=== PATIENT | female | born 1935 | race Caucasian/White ===

== ENCOUNTER 2019-09-13 05:11 | Emergency (ER) | payer OTHER ==
[~2019-09-13] VITALS: Ht 152.4 cm; Wt 81.7 kg
[~2019-09-13 05:11] MED LIST: ALBU90OI; AMLO5 PO; ASPI81CH PO; AZIT250; BENAML10/5 PO; CIPR500 PO; Colace250 MG PO; DIGO.125; DILT240; DOCU100; FURO20; HYDACE5; IRON GLUCONATE; KCL 10 MEQ; LANS30EC; LISI5; LORA.5; METO100ER PO; METO25ER; METO50; METR500 PO; Norco 7.5-3251 EACH PO; OMEP20ER PO; ONDA4ODT; SIMV20; WARF2; WARF3; [UNRECOGNIZED DRUG - OTHER]
[2019-09-13 05:37] LABS: BASOPHILS ABSOLUTE AUTO 0.04 K/mm3 (0.00-0.23); BASOPHILS PERCENT AUTO 0 % (0-2); EOSINOPHILS ABSOLUTE AUTO 0.19 K/mm3 (0.00-0.68); EOSINOPHILS PERCENT AUTO 1 % (0-6); Hematocrit 41.9 % (33.0-51.0); Hemoglobin 13.8 g/dL (11.5-16.0); IMMATURE GRAN ABSOLUTE AUTO 0.05 K/mm3 (0.00-0.10); IMMATURE GRAN PERCENT AUTO 0 % (0-1); LYMPHOCYTES ABSOLUTE AUTO 2.32 K/mm3 (0.84-5.20); LYMPHOCYTES PERCENT AUTO 17 % (21-46); MONOCYTES ABSOLUTE AUTO 1.09 K/mm3 (0.16-1.47); MONOCYTES PERCENT AUTO 8 % (4-13); Mean Corpuscular HGB 31.6 pg (26.0-34.0); Mean Corpuscular HGB Conc 32.9 g/dL (31.5-36.5); Mean Corpuscular Volume 96 fL (80-100); Mean Platelet Volume 10.6 fL (9.1-12.4); NEUTROPHILS ABSOLUTE AUTO 9.79 K/mm3 (1.96-9.15); NEUTROPHILS PERCENT AUTO 73 % (41-73); Platelet Count 247 K/mm3 (150-400); RDW Coefficient Variation 12.5 % (11.7-14.2); RDW Standard Deviation 44.6 fL (35.1-46.3); Red Blood Cell Count 4.37 M/mm3 (3.80-5.20); White Blood Cell Count 13.48 K/mm3 (4.00-11.30)
[2019-09-13 05:56] LABS: Alanine Aminotransfer (ALT/SGP 13 U/L (12-78); Albumin, Blood 3.2 g/dL (3.4-5.0); Albumin/Globulin Ratio 0.9 (0.8-1.8); Alk Phos 73 U/L (50-136); Anion Gap 8 mmol/L (6-16); Aspartate Aminotrans (AST/SGOT 7 U/L (12-37); Bilirubin, Total 0.8 mg/dL (0.1-1.0); Blood Urea Nitrogen 12 mg/dL (8-24); Bun/Creatinine Ratio 13.4 (12.0-20.0); CO2, Blood 22 mmol/L (21-32); Chloride, Blood 110 mmol/L (98-108); Globulin, Blood 3.7 g/dL (2.2-4.0); Glomerular Filtration Rate >60 (60-); Glucose, Blood 114 mg/dL (70-99); Sodium, Blood 140 mmol/L (136-145); Total Protein, Blood 6.9 g/dL (6.4-8.2); Troponin I <0.015 ng/mL (0.000-0.040)
[2019-09-13] MEDS ORDERED: CEFD300 PO (06:19)
== END 2019-09-13 06:48 | disposition home or self-care (01) ==
LOC: ER 05:11
PROVIDERS: Emergency Medicine
DX: J18.9 Pneumonia, unspecified organism (principal); I10 Essential (primary) hypertension; K21.9 Gastro-esophageal reflux disease without esophagitis; Z88.2 Allergy status to sulfonamides; Z88.1 Allergy status to other antibiotic agents; Z79.899 Other long term (current) drug therapy; F17.200 Nicotine dependence, unspecified, uncomplicated
CPT/HCPCS: 36415; 71046; 80053; 84484; 85025; 93005; 93010; 99285-25

== ENCOUNTER 2019-09-15 14:42 | Inpatient (IN) | payer OTHER ==
[~2019-09-15] VITALS: Ht 162.6 cm; Wt 85.6 kg
[~2019-09-15 14:42] MED LIST changes: +CEFD300 PO
[2019-09-15 15:38] LABS: BASOPHILS ABSOLUTE AUTO 0.05 K/mm3 (0.00-0.23); BASOPHILS PERCENT AUTO 0 % (0-2); EOSINOPHILS ABSOLUTE AUTO 0.22 K/mm3 (0.00-0.68); EOSINOPHILS PERCENT AUTO 2 % (0-6); Hematocrit 42.2 % (33.0-51.0); Hemoglobin 14.1 g/dL (11.5-16.0); IMMATURE GRAN ABSOLUTE AUTO 0.07 K/mm3 (0.00-0.10); IMMATURE GRAN PERCENT AUTO 1 % (0-1); LYMPHOCYTES ABSOLUTE AUTO 2.25 K/mm3 (0.84-5.20); LYMPHOCYTES PERCENT AUTO 15 % (21-46); MONOCYTES ABSOLUTE AUTO 1.08 K/mm3 (0.16-1.47); MONOCYTES PERCENT AUTO 7 % (4-13); Mean Corpuscular HGB 31.9 pg (26.0-34.0); Mean Corpuscular HGB Conc 33.4 g/dL (31.5-36.5); Mean Corpuscular Volume 96 fL (80-100); Mean Platelet Volume 10.6 fL (9.1-12.4); NEUTROPHILS PERCENT AUTO 75 % (41-73); Platelet Count 321 K/mm3 (150-400); RDW Coefficient Variation 12.3 % (11.7-14.2); RDW Standard Deviation 43.2 fL (35.1-46.3); Red Blood Cell Count 4.42 M/mm3 (3.80-5.20); White Blood Cell Count 14.57 K/mm3 (4.00-11.30)
[2019-09-15 16:03] LABS: Albumin/Globulin Ratio 0.7 (0.8-1.8); Bilirubin, Total 0.4 mg/dL (0.1-1.0); Bun/Creatinine Ratio 11.5 (12.0-20.0); Creatinine, Blood 1.04 mg/dL (0.40-1.00); Globulin, Blood 4.4 g/dL (2.2-4.0); Potassium, Blood 4.1 mmol/L (3.5-5.5); Total Protein, Blood 7.4 g/dL (6.4-8.2)
--- NOTE | 2019-09-15 19:23 | NUR ---
pt arrived to the medical floor from the er a/ox3, via stretcher, accompanied by family, the pt was oriented to the room layout and call system, report given to [facility] nurse Mabel keating
[2019-09-15 21:01] LABS: Influenza A Negative (NEGATIVE); Influenza B Negative (NEGATIVE)
[2019-09-16 05:14] LABS: Hematocrit 36.5 % (33.0-51.0); Mean Corpuscular HGB Conc 32.9 g/dL (31.5-36.5); Mean Corpuscular Volume 97 fL (80-100); Mean Platelet Volume 10.7 fL (9.1-12.4); Platelet Count 259 K/mm3 (150-400); RDW Coefficient Variation 12.4 % (11.7-14.2); RDW Standard Deviation 44.5 fL (35.1-46.3); Red Blood Cell Count 3.75 M/mm3 (3.80-5.20)
--- NOTE | 2019-09-16 05:22 | NUR ---
SHIFT SUMMARY: VSS. AFEB. SKIN WARM AND DRY. A/OX3. SOMEWHAT LIME. FAMILY AT BEDSIDE ALL NIGHT. NAUSEA AND VOMITIN AFTER SNACK JUST BEFORE BEDTIME, ZOFRAN ADMINISTERED WITH RELIEF. NO FURTHER REPORTS OF N/V. CONT WITH OCCASIONAL HARSH SOUNDING, PRODUCTIVE COUGH. SPUTUM CLEAR WITH RED STREAKS. PT C/O R SIDE/LOWER RIB PAIN. TYLENOL ADMINISTERED WITH GOOD EFFECT. DYSPNEA AND TACHYPNEA HAS IMPROVED THROUGH THE NIGHT. PT CURRENTLY BREATHING AT 16 BREATHS/MIN. DENIES FEELING DISTRESSED. CONT WITH EXERTIONAL DYSPNEA. 02 SATS HAVE REMAINED 97-98% ON RA. LSCTA, BASES DIM. BED LOW, CALL BUTTON IN REACH. WILL CONT TO MONITOR.
--- NOTE | 2019-09-16 05:28 | NUR ---
CALL TO HOSPITALIST AT 2150 PER PT REQUEST FOR SLEEP AID. RECEIVED ORDER FOR MELATONIN.
[2019-09-16 06:42] LABS: Adenovirus Not Detected (NOT DETECT); Bordetella pertussis Not Detected (NOT DETECT); Chlamydophila pneumoniae Not Detected (NOT DETECT); Coronavirus 229E Not Detected (NOT DETECT); Coronavirus HKU1 Not Detected (NOT DETECT); Coronavirus NL63 Not Detected (NOT DETECT); Coronavirus OC43 Not Detected (NOT DETECT); Human Metapneumovirus Not Detected (NOT DETECT); Human Rhinovirus/Enterovirus Not Detected (NOT DETECT); Influenza A Not Detected (NOT DETECT); Influenza A/2009-H1 Not Detected (NOT DETECT); Influenza A/H1 Not Detected (NOT DETECT); Influenza A/H3 Not Detected (NOT DETECT); Influenza B Not Detected (NOT DETECT); Mycoplasma pneumoniae Not Detected (NOT DETECT); Parainfluenza Virus 1 Not Detected (NOT DETECT); Parainfluenza Virus 2 Not Detected (NOT DETECT); Parainfluenza Virus 3 Not Detected (NOT DETECT); Parainfluenza Virus 4 Not Detected (NOT DETECT); Respiratory Syncytial Virus Not Detected (NOT DETECT)
--- NOTE | 2019-09-16 16:54 | NUR ---
PT IS A/OX3, PLEASANT AND COOPERATIVE, PT IS UP WITH ASSIST, PT WAS MEDICATED FOR LUNA X1 TODAY, PT REPORTS FEELING THAT SHE IS BREATHING A LITTLE EASIER, HOWEVER SHE IS STILL SOB WITH MINIMAL ACTIVITY AND EVEN WHEN SPEAKING, PTS O2 SATS HAVE REMAINED IN THE MID 90'S AND THE PT STATED THAT SHE DID NOT FEEL THAT SHE NEEDED O2, PTS FAMILY HAS BEEN AT THE BEDSIDE T/O THE DAY, CALL LIGHT IN REACH, WILL CONTINUE TO MONITOR AND ASSESS FOR CHANGES
--- NOTE | 2019-09-17 03:36 | NUR ---
MEDIA CONSULTANT REPORTS PATIENT RESPIRATIONS UP TO 30 WHEN UP TO BATHROOM AND THEN TOOK VITALS. RESPIRATIONS BACK TO 20 AT REST. CALL LIGHT IN REACH.
--- NOTE | 2019-09-17 03:47 | NUR ---
SHIFT SUMMARY PATIENT HAD NO ACUTE CHANGES OBSERVED. AXOX 3 AND FAMILY MEMBER PRESENT IN ROOM T/O SHIFT. PIV REMAINS INTACT. VSS/AFEBRILE. REPORTED LUNA X ONE AND TYLENOL GIVEN PER EMAR. IV ABXS INFUSED. DENIES SOB AND N/V. ONE ASSIST TO BSC. COOPERATIVE WITH CARE. CALL LIGHT IN REACH. BED IN LOWEST POSITION. WILL CONTINUE TO MONITOR UNTIL DAY SHIFT NURSE ASSUMES CARE.
[2019-09-17 08:12] LABS: Anion Gap 8 mmol/L (6-16); Blood Urea Nitrogen 7 mg/dL (8-24); Bun/Creatinine Ratio 8.1 (12.0-20.0); CO2, Blood 20 mmol/L (21-32); Calcium, Blood 8.7 mg/dL (8.5-10.1); Chloride, Blood 113 mmol/L (98-108); Creatinine, Blood 0.86 mg/dL (0.40-1.00); Glomerular Filtration Rate >60 (60-); Glucose, Blood 108 mg/dL (70-99); Potassium, Blood 3.9 mmol/L (3.5-5.5); Sodium, Blood 141 mmol/L (136-145)
--- NOTE | 2019-09-17 15:27 | NUR ---
SHIFT SUMMARY PT IS A/O X 4 WITH C/O HEADACHE X 1 AND TYLENOL WAS EFFECTIVE. PT HAS NO S/S OF RESPIRATORY DISTRESS AND WAS ABLE TO WORK WITH PT TODAY. SHE CONTINUES TX WITH RT. DAUGHTERS HAVE BEEN AT BEDSIDE THROUGHOUT THE DAY. THE PT REPORTED TO THE DOCTOR THIS MORNING THAT SHE HAS HAD LOOSE STOOLS SINCE YESTERDAY. A STOOL SAMPLE WAS COLLECTED AND WAS NEGATIVE FOR C-DIFF PER LAB RESULTS AND THE PT AND CHARGE NURSE WERE NOTIFIED. PT REMAINS A X 1 ASSIST TO THE BSC FOR TOILETING. SHE IS UP TO HER CHAIR NOW. PT IS ABLE TO MAKE HER NEEDS KNOWN. CALL LIGHT IN REACH.
--- NOTE | 2019-09-17 19:50 | NUR ---
RT IN FOR BREATHING TX. PATIENT REPORTED SOB. WAS ON ROOM AIR AND DAY RN PLACED HER ON 2L O2 NC. NEW ORDERS FOR IV ABXS. IV VANCO INFUSING.
--- NOTE | 2019-09-18 04:07 | NUR ---
SHIFT SUMMARY PATIENT REPORTED SOB WITH EXERTION AT SHIFT CHANGE. PUT ON 2L O2 NC BY DAY RN AND RT IN FOR BREATHING TX. NAUSEOUS X ONE AND RESOLVED WITH IV ZOFRAN. PIV REMAINS INTACT. NEW ORDERS FOR IV VANCO AND IV LEVOFLAXIN 750 MG INFUSED PER EMAR. MELATONIN 5 MG GIVEN FOR INSOMNIA. VSS/AFEBRILE. DENIES PAIN. DAUGHTER PRESENT T/O SHIFT. PATIENT SLEPT ON/OFF T/O SHIFT. CALL LIGHT IN REACH. BED IN LOWEST POSITION. WILL CONTINUE TO MONITOR UNTIL DAY SHIFT NURSE ASSUMES CARE.
[2019-09-18 07:48] LABS: BASOPHILS ABSOLUTE AUTO 0.05 K/mm3 (0.00-0.23); BASOPHILS PERCENT AUTO 1 % (0-2); EOSINOPHILS ABSOLUTE AUTO 0.14 K/mm3 (0.00-0.68); EOSINOPHILS PERCENT AUTO 1 % (0-6); Hematocrit 36.2 % (33.0-51.0); Hemoglobin 12.1 g/dL (11.5-16.0); IMMATURE GRAN ABSOLUTE AUTO 0.06 K/mm3 (0.00-0.10); IMMATURE GRAN PERCENT AUTO 1 % (0-1); LYMPHOCYTES ABSOLUTE AUTO 1.72 K/mm3 (0.84-5.20); LYMPHOCYTES PERCENT AUTO 17 % (21-46); MONOCYTES ABSOLUTE AUTO 0.79 K/mm3 (0.16-1.47); MONOCYTES PERCENT AUTO 8 % (4-13); Mean Corpuscular HGB 31.7 pg (26.0-34.0); Mean Corpuscular HGB Conc 33.4 g/dL (31.5-36.5); Mean Corpuscular Volume 95 fL (80-100); NEUTROPHILS ABSOLUTE AUTO 7.11 K/mm3 (1.96-9.15); NEUTROPHILS PERCENT AUTO 72 % (41-73); Platelet Count 294 K/mm3 (150-400); RDW Coefficient Variation 12.3 % (11.7-14.2); RDW Standard Deviation 42.9 fL (35.1-46.3); Red Blood Cell Count 3.82 M/mm3 (3.80-5.20); White Blood Cell Count 9.87 K/mm3 (4.00-11.30)
[2019-09-18 08:09] LABS: Albumin, Blood 2.6 g/dL (3.4-5.0); Anion Gap 9 mmol/L (6-16); Blood Urea Nitrogen 5 mg/dL (8-24); Bun/Creatinine Ratio 6.8 (12.0-20.0); CO2, Blood 21 mmol/L (21-32); Calcium, Blood 8.9 mg/dL (8.5-10.1); Chloride, Blood 107 mmol/L (98-108); Creatinine, Blood 0.74 mg/dL (0.40-1.00); Glomerular Filtration Rate >60 (60-); Glucose, Blood 115 mg/dL (70-99); Phosphorus, Blood 2.8 mg/dL (2.5-4.9); Potassium, Blood 3.9 mmol/L (3.5-5.5); Sodium, Blood 137 mmol/L (136-145)
--- NOTE | 2019-09-18 10:00 | NUR ---
Upon family's request, I visit patient with the purpose of informing patient about the recent demise of her sister who moments before my visit. I inform patient of her sister's , inquire about patient's medical issues and provide grief support. I listen empathically, normalize patient's experience and provide prayer. Patient responds well and voices appreciation for the tenderness of care and for the prayer. I will continue to remain available to patient and family.
--- NOTE | 2019-09-18 18:39 | NUR ---
No acute issues noted. No current complaints of pain or discomfort noted. No nausea or vomitting noted this shift. Patient has slept off and on most of the day after no getting much sleep last night. No current complaints of shortness of breath, patient is on room air at this time. Will continue to monitor for changes.
--- NOTE | 2019-09-19 00:59 | NUR ---
PATIENT RESTING ON ROOM AIR. REPORTED LUNA X ONE AND TYLENOL GIVEN. DAUGHTER PRESENT. DENIES SOB AND ANXIETY. CALL LIGHT IN REACH.
--- NOTE | 2019-09-19 03:52 | NUR ---
SHIFT SUMMARY PATIENT HAD NO ACUTE CHANGES OBSERVED THIS SHIFT. AXOX 3 AND ONE ASSIST TO BSC. REPORTED LUNA X ONE AND TYLENOL GIVEN PER EMAR. DENIES N/V AND SOB. ON ROOM AIR. DAUGHTER PRESENT IN ROOM T/O SHIFT. PATIENT ABLE TO SLEEP. PATIENT REPORTED BREATHING IMPROVED SINCE LAST NOC SHIFT AND HAD NO N/V EVENTS. COOPERATIVE WITH CARE. CALL LIGHT IN REACH. BED IN LOWEST POSITION. WILL CONTINUE TO MONITOR UNTIL DAY SHIFT NURSE ASSUMES CARE.
[2019-09-19 05:36] LABS: BASOPHILS ABSOLUTE AUTO 0.07 K/mm3 (0.00-0.23); BASOPHILS PERCENT AUTO 1 % (0-2); EOSINOPHILS ABSOLUTE AUTO 0.26 K/mm3 (0.00-0.68); EOSINOPHILS PERCENT AUTO 3 % (0-6); Hematocrit 42.4 % (33.0-51.0); Hemoglobin 13.8 g/dL (11.5-16.0); IMMATURE GRAN ABSOLUTE AUTO 0.06 K/mm3 (0.00-0.10); IMMATURE GRAN PERCENT AUTO 1 % (0-1); LYMPHOCYTES ABSOLUTE AUTO 3.02 K/mm3 (0.84-5.20); LYMPHOCYTES PERCENT AUTO 33 % (21-46); MONOCYTES ABSOLUTE AUTO 0.77 K/mm3 (0.16-1.47); MONOCYTES PERCENT AUTO 9 % (4-13); Mean Corpuscular HGB 31.8 pg (26.0-34.0); Mean Corpuscular HGB Conc 32.5 g/dL (31.5-36.5); Mean Platelet Volume 10.5 fL (9.1-12.4); NEUTROPHILS ABSOLUTE AUTO 4.89 K/mm3 (1.96-9.15); NEUTROPHILS PERCENT AUTO 54 % (41-73); Platelet Count 331 K/mm3 (150-400); RDW Coefficient Variation 12.3 % (11.7-14.2); RDW Standard Deviation 44.6 fL (35.1-46.3); Red Blood Cell Count 4.34 M/mm3 (3.80-5.20); White Blood Cell Count 9.07 K/mm3 (4.00-11.30)
[2019-09-19 05:43] LABS: Mean Corpuscular Volume 98 fL (80-100)
[2019-09-19 06:08] LABS: Albumin, Blood 2.8 g/dL (3.4-5.0); Anion Gap 8 mmol/L (6-16); Blood Urea Nitrogen 6 mg/dL (8-24); Bun/Creatinine Ratio 6.9 (12.0-20.0); CO2, Blood 24 mmol/L (21-32); Calcium, Blood 9.4 mg/dL (8.5-10.1); Chloride, Blood 106 mmol/L (98-108); Creatinine, Blood 0.87 mg/dL (0.40-1.00); Glomerular Filtration Rate >60 (60-); Glucose, Blood 99 mg/dL (70-99); Phosphorus, Blood 3.6 mg/dL (2.5-4.9); Potassium, Blood 3.9 mmol/L (3.5-5.5); Sodium, Blood 138 mmol/L (136-145)
--- NOTE | 2019-09-19 15:21 | NUR ---
Spiritual care visit conducted. Patient is sitting up in bed and alert. Patient son, Orlin, is present in the room. Patient tells me about her how she is feeling much better from yesterday when I saw her last. Patient boasts of a close to 12 hour sleep last night. Patient tells me how she is processing the grief of her sister's . Patient tells me stories of how they grew up and the poverty they had to push through. She told about what her sister was like and the relationship they had. I listen to patient and provide grief support and prayer. Patient responds well and shows signs of being comforted. I will continue to remain available to patient and family.
--- NOTE | 2019-09-19 18:49 | NUR ---
SHIFT SUMMARY- PT IS A/O, PLESANT AND COOPERATIVE. SHE IS EATING AND DRINKING WELL. REVIECING IV ANTIBIOTICS. FAMILY AT BEDSIDE. PT WORKED WITH PHYSICAL THERAPY THIS AFTERNOON AND AMBULATED IN THE LEPE. PT STATES THAT SHE FEELS MUCH BETTER THAN SHE PREVIOUSLY DID BUT IS STILL FEELING WEAKNESS
--- NOTE | 2019-09-20 07:19 | NUR ---
09/20/19 0635 AWAKED FOR AM MED. COUGHING AND DAUGHTER STATES SHE HAS BEEN DOING "A LOT OF COUGHING" RECENTLY. WILL INFORM DAY SHIFT RN FOR COUGH PILLS. LOW GRADE TEMP NOTED BUT PT HAD DOOR CLOSED AND HEATER WAS ON HIGH. LILLIE STAYED ALL NIGHT WITH PT.
--- NOTE | 2019-09-20 18:22 | NUR ---
SHIFT SUMMARY PT HAS HAD A POOR APPETITE TODAY AND NOT EATING MORE THAN A FEW BITES OF APPLE OR CRACKERS. DAUGHTERS AT BEDSIDE MOST OF THE DAY. THEY REPORT PT IS MUCH WORSE TODAY THAN YESTERDAY. HAD A SMALL EMESIS THIS MORNING AND JUST A SMALL AMOUNT OF BILE THIS AFTERNOON. PHENERGAN GIVEN WITH PT BECOMING DROWSY. RESP SOUNDS MORE MOIST AND RAPID THIS AFTERNOON. LASIX GIVEN. DENIES FEELING RESP DISTRESS. 1 PERSON UP TO BEDSIDE COMMODE. WALKED WITH P.T. THIS AFTERNOON.
--- NOTE | 2019-09-21 01:17 | NUR ---
BEGINNING SHIFT SUMMARY ASSUMED CARE PF PT AT 1900. PT IS ALERT AND ORIENTED X4. FAMILY PRESENT. PT VITALS SHOWED A VEIW SCORE OF 4 AT 1930. PT MEDICATED FOR FEVER AND NIGHTLY BP MEDICATIONS ADMINISTERED, MANUAL PULSE TAKEN. UPON REASSESSMENT ONE HOUR LATER, TEMP REDUCED FROM 100.9 TO 99.3, BP DECREASED AND PULSE DECREASED. RESPIRATIONS ARE STILL ELEVATED, RT CONSULTED AND BREATHING TREATMENT ADMINISTERED, PT STILL ON 2L O2 FOR COMFORT, WILL TITRATE BACK TO RA. HEART SOUNDS IRREGULAR, HX: UNTREATED AFIB. INSPIRATORY AND EXPIRATORY WHEEZES HEARD ON AUSCALTATION, CRACKLES AFTER BREATHING TREATMENT, PT STATES SHE FEELS BETTER AFTER TREATMENT. CALL LIGHT IN REACH, BED IN LOWEST POSTION, WILL CONTINUE TO MONITOR.
--- NOTE | 2019-09-21 05:00 | NUR ---
END SHIFT SUMMARY PT SPIKED ANOTHER TEMP DURING THE NIGHT, THE PT C/O CHILLS. MEDICATED PER EMAR. UPON REASSESSMENT, PT TEMP DECREASED FROM 101.1 TO 99.4. PT FEELS HOT NOW, BLANKETS ARE OFF, ROOM DOOR IS OPEN. PT IS NOW ON RA, SATURATION ABOVE 90 PT DENIES SOB AT THIS TIME. FAMILY IN ROOM, CALL LIGHT IN REACH, BED IN LOWEST POSTION, WILL CONTINUE TO MONITOR UNTIL DAYSHIFT NURSE ARRIVES.
[2019-09-21 05:50] LABS: BASOPHILS ABSOLUTE AUTO 0.04 K/mm3 (0.00-0.23); BASOPHILS PERCENT AUTO 1 % (0-2); EOSINOPHILS ABSOLUTE AUTO 0.01 K/mm3 (0.00-0.68); EOSINOPHILS PERCENT AUTO 0 % (0-6); Hematocrit 38.5 % (33.0-51.0); Hemoglobin 12.9 g/dL (11.5-16.0); IMMATURE GRAN ABSOLUTE AUTO 0.05 K/mm3 (0.00-0.10); IMMATURE GRAN PERCENT AUTO 1 % (0-1); LYMPHOCYTES ABSOLUTE AUTO 0.67 K/mm3 (0.84-5.20); LYMPHOCYTES PERCENT AUTO 11 % (21-46); MONOCYTES ABSOLUTE AUTO 0.58 K/mm3 (0.16-1.47); MONOCYTES PERCENT AUTO 10 % (4-13); Mean Corpuscular HGB 31.7 pg (26.0-34.0); Mean Corpuscular HGB Conc 33.5 g/dL (31.5-36.5); Mean Platelet Volume 10.1 fL (9.1-12.4); NEUTROPHILS ABSOLUTE AUTO 4.77 K/mm3 (1.96-9.15); NEUTROPHILS PERCENT AUTO 78 % (41-73); Platelet Count 281 K/mm3 (150-400); RDW Coefficient Variation 12.2 % (11.7-14.2); Red Blood Cell Count 4.07 M/mm3 (3.80-5.20); White Blood Cell Count 6.12 K/mm3 (4.00-11.30)
[2019-09-21 05:52] LABS: Mean Corpuscular Volume 95 fL (80-100)
[2019-09-21 06:23] LABS: Anion Gap 9 mmol/L (6-16); Blood Urea Nitrogen 9 mg/dL (8-24); Bun/Creatinine Ratio 11.3 (12.0-20.0); CO2, Blood 24 mmol/L (21-32); Calcium, Blood 8.5 mg/dL (8.5-10.1); Chloride, Blood 98 mmol/L (98-108); Glomerular Filtration Rate >60 (60-); Glucose, Blood 108 mg/dL (70-99); Potassium, Blood 3.3 mmol/L (3.5-5.5); Sodium, Blood 131 mmol/L (136-145); Troponin I <0.015 ng/mL (0.000-0.040)
--- NOTE | 2019-09-21 08:50 | NUR ---
CURRENTLY HAVING ECHOCARDIOGRAM. POTASSIUM LEVEL THIS MORNING 3.3 EXTRA 40MEQ GIVEN OF POTASSIUM.
--- NOTE | 2019-09-21 15:14 | NUR ---
echocardiogram completed
--- NOTE | 2019-09-21 15:55 | NUR ---
Spiritual care visit conducted. Patient is lying in bed and trying to remain still for fear of vomiting. Patient's daughter, Aleksey, is bed side. Aleksey tells me about her concerns for her mom as she is losing strength and weight and continues to struggle with nuasea. Aleksey shares about the strong luz maria and family support systems that are in place but she admits to worrying as the symptoms drag on. I listen empathically, normalize Aleksey' experience, reinforce helpful attitudes and practices and provide anxiety containment and prayer. Patient and Aleksey respond well and show signs of an elevated mood. I will continue to remain available to patient and family.
--- NOTE | 2019-09-21 19:01 | NUR ---
SHIFT SUMMARY TEMP DOWN TO 99.3 THIS EVENING. SHE REPORTS SHE IS FEELING SLIGHTLY BETTER. STILL VERY WEAK. UP TO CHAIR FOR DINNER. PATIENT AGREEABLE TO SHOWER IN THE MORNING BUT REFUSING TODAY. NO COMPLAINTS OF PAIN AND NO FURTHER COMPLAINTS OF NAUSEA AFTER EARLY AFTERNOON. FAMILY AT BEDSIDE. ECHO COMPLETE TODAY.
--- NOTE | 2019-09-21 23:31 | NUR ---
BEGINNING SHIFT SUMMARY ASSUMED CARE OF PT AT 1900. PT IS ALERT AND ORIENTED, DENIES N/T AT THIS TIME, FAMILY STATED THAT HER L LEG WENT NUMB THIS MORNING. HEART SOUNDS REGULAR, CRACKLES T/O LUNG FEILDS, RT CONSULTED WITH CARE. PT IS 1P ASSIST TO BATHROOM WITH WALKER. FAMILY IS IN ROOM WITH PT. CALL LIGHT IN REACH, BED IN LOWEST POSTION, WILL CONTINUE TO MONITOR.
--- NOTE | 2019-09-22 04:47 | NUR ---
END SHIFT SUMMARY NO ACUTE CHANGES DURING THE NIGHT. THE PATIENT WAS AFEBRILE, AND STATED THAT SHE WAS FEELING BETTER. PT HAS OCCASIONAL COUGH. PT IS SITTING IN HER RECLINER NOW BECAUSE SHE COULDNT GO BACK TO SLEEP. FAMILY PRESENT IN ROOM, CALL LIGHT IN REACH, BED IN LOWEST POSTION, WILL CONTINUE TO MONITOR UNTIL DAYSHIFT NURSE ARRIVES.
[2019-09-22 05:21] LABS: BASOPHILS ABSOLUTE AUTO 0.03 K/mm3 (0.00-0.23); BASOPHILS PERCENT AUTO 1 % (0-2); EOSINOPHILS PERCENT AUTO 0 % (0-6); Hematocrit 41.1 % (33.0-51.0); Hemoglobin 13.7 g/dL (11.5-16.0); IMMATURE GRAN ABSOLUTE AUTO 0.05 K/mm3 (0.00-0.10); IMMATURE GRAN PERCENT AUTO 1 % (0-1); LYMPHOCYTES ABSOLUTE AUTO 1.41 K/mm3 (0.84-5.20); LYMPHOCYTES PERCENT AUTO 23 % (21-46); MONOCYTES ABSOLUTE AUTO 0.66 K/mm3 (0.16-1.47); MONOCYTES PERCENT AUTO 11 % (4-13); Mean Corpuscular HGB 31.1 pg (26.0-34.0); Mean Corpuscular HGB Conc 33.3 g/dL (31.5-36.5); Mean Corpuscular Volume 93 fL (80-100); Mean Platelet Volume 10.2 fL (9.1-12.4); NEUTROPHILS ABSOLUTE AUTO 4.03 K/mm3 (1.96-9.15); NEUTROPHILS PERCENT AUTO 65 % (41-73); Platelet Count 274 K/mm3 (150-400); RDW Coefficient Variation 12.3 % (11.7-14.2); RDW Standard Deviation 42.6 fL (35.1-46.3); White Blood Cell Count 6.18 K/mm3 (4.00-11.30)
[2019-09-22 05:51] LABS: Bun/Creatinine Ratio 12.4 (12.0-20.0); Calcium, Blood 8.8 mg/dL (8.5-10.1); Creatinine, Blood 0.97 mg/dL (0.40-1.00); Potassium, Blood 3.5 mmol/L (3.5-5.5)
--- NOTE | 2019-09-22 18:25 | NUR ---
PT ALERT AND ORIENTED THROUGHOUT THIS SHIFT. PT [employer]. PT WORKED WITH PT THIS AM THEN NAPPED MUCH OF THE AFTERNOON. PT UP TO CHAIR FOR DINNER. PT HAS HAD MULTIPLE VISITORS IN THE ROOM THROUGHOUT THIS SHIFT. PT CURRENLY UP IN CHAIR VISITING WITH VISITORS, NO ADDITIONAL NEEDS AT THIS TIME.
--- NOTE | 2019-09-23 04:20 | NUR ---
09/23/19 0420 PT SLEPT ON AND OFF. DAUGHTER STAYED WITH HER AND HELPS TAKE HER TO THE BATHROOM. HAD SEVERAL VOIDINGS AND STOOL LAST NIGHT. VITALS STABLE AND HAS BEEN AFEBRILE THIS SHIFT. PT HAD DIFFICULTY SWALLOWING THE ANTIBIOTIC LAST EVENING. WILL INFORM DAY SHIFT RN TO ASK MD FOR ANTIBIOTIC IN SUSPENSION FORM. PT REMAINS WEAK.
[2019-09-23] MEDS ORDERED: FURO20 PO (11:42)
[2019-09-23] MEDS ORDERED: Vsl#3 Capsule1 EACH PO (11:45)
[2019-09-23] MEDS ORDERED: XARELTO15 MG PO (11:45)
[2019-09-23] MEDS ORDERED: POTA10T PO (11:46)
--- NOTE | 2019-09-23 15:16 | NUR ---
PT DISCHARGED TO HOME. PT TRANSPORTED HOME WITH DAUGHTER. PT BELONGINGS WITH PT UPON DISCHARGE. IV REMOVED ON 09/22, NO IV REPLACED. PT TRANSPORTED TO VEHICLE BY JAMES DUONG CNA. DISCHARGE INSTRUCTIONS REVIEWED WITH DAUGHTER, PER PT'S REQUEST.
== END 2019-09-23 12:44 | disposition home or self-care (01) | DRG 871 ==
LOC: ER 14:42 → MEDS 17:58 → ENPENDDIS 09-23 10:00 → MEDS 09-23 12:44
PROVIDERS: Internal Medicine; Nurse Practitioner Acute Care; Physician Assistant; ADMIT Internal Medicine
DX: A41.9 Sepsis, unspecified organism (principal); I50.43 Acute on chronic combined systolic (congestive) and diastolic (congestive) heart failure; J18.9 Pneumonia, unspecified organism; E87.1 Hypo-osmolality and hyponatremia; I11.0 Hypertensive heart disease with heart failure; I48.91 Unspecified atrial fibrillation; R65.20 Severe sepsis without septic shock; K21.9 Gastro-esophageal reflux disease without esophagitis; Z66 Do not resuscitate; M54.9 Dorsalgia, unspecified; Z87.891 Personal history of nicotine dependence; Z88.2 Allergy status to sulfonamides; Z88.8 Allergy status to other drugs, medicaments and biological substances; Z91.81 History of falling
CPT/HCPCS: 0099U; 36415; 71045; 71046; 71260; 80048; 80053; 80069; 83605; 83880; 84145; 84484; 85025; 85027; 87040; 87070; 87205; 87493; 87804; 93306; 94640; 94760; 94761; 97110; 97116; 97162; 97165; 97530; 97535; 99285-25; A9270; C9113; J0456; J0696; J1650; J1940; J1956; J2405; J2550; J3370; J7030; J7050; Q9967

== ENCOUNTER 2021-01-28 10:20 | Day surgery (SDC) | payer OTHER ==
[~2021-01-28] VITALS: Ht 152.4 cm; Wt 80.6 kg
[~2021-01-28 10:20] MED LIST changes: +FURO20 PO; +POTA10T PO; +Vsl#3 Capsule1 EACH PO; +XARELTO15 MG PO; +XARELTO20 MG PO
--- NOTE | 2021-01-28 10:56 | NUR ---
PT TO DAYSURGERY VIA WC. Patient confirms NPO status and agrees with scheduled surgery. History, Chart, Medications and Allergies reviewed before start of procedure. Lungs clear T/O to Auscultation. Patient reports completing Chlorhexadine shower X2 prior to admission to hospital.
--- NOTE | 2021-01-28 19:39 | NUR ---
SHIFT SUMMARY PT HAS STRUGGLED W/ N/V SINCE ARRIVAL TO UNIT. SPINAL WORE OFF AROUND 1800 & PAIN INCREASED. UNABLE TO DO PO MEDS DUE TO DRY HEAVES. MINIMAL RESULTS FROM DILAUDID. REPORTS OXYCODONE CAUSES SEVERE N/V SO TRAMADOL ORDERED INSTEAD. UNABLE TO GIVE DUE TO N/V.
--- NOTE | 2021-01-29 02:44 | NUR ---
SHIFT SUMMARY: POD 1 RIGHT TKA PATIENT IS ALERT AND ORIENTED X4 WHILE AWAKE. THOUGH PATIENT HAS BEEN ASLEEP MAJORITY OF THE SHIFT BUT IS EASILY AWAKENED. VS ARE WNL AND IS ON RA. PAIN IS MANAGED WITH DILAUDID WITH PHENERGAN. PATIENT ALSO HAS TRAMADOL PRN FOR PAIN WELL. PATIENT HAS 1 AQUACEL IS C/D/I. SHE DENIES ANY NUMBNESS OR TINGLING IN EXTREMITIES. SHE IS ABLE TO WIGGLE FINGERS AND TOES. PATIENT WAS ABLE TO AMBULATE TO BATHROOM WITH FWW AND GAIT BELT A SBA. CALLS APPROPRIATELY. CALL LIGHT WITHIN REACH. PATIENT IS VOIDING AND TOLERATING PO INTAKE. THE PLAN IS TO WORK WITH PT/OT LATER TODAY.
[2021-01-29 04:29] LABS: BASOPHILS ABSOLUTE AUTO 0.01 K/mm3 (0.00-0.23); BASOPHILS PERCENT AUTO 0 % (0-2); EOSINOPHILS PERCENT AUTO 0 % (0-6); Hematocrit 32.1 % (33.0-51.0); Hemoglobin 10.9 g/dL (11.5-16.0); IMMATURE GRAN ABSOLUTE AUTO 0.04 K/mm3 (0.00-0.10); IMMATURE GRAN PERCENT AUTO 0 % (0-1); LYMPHOCYTES ABSOLUTE AUTO 0.98 K/mm3 (0.84-5.20); LYMPHOCYTES PERCENT AUTO 9 % (21-46); MONOCYTES ABSOLUTE AUTO 0.33 K/mm3 (0.16-1.47); MONOCYTES PERCENT AUTO 3 % (4-13); Mean Corpuscular HGB 32.8 pg (26.0-34.0); Mean Corpuscular Volume 97 fL (80-100); Mean Platelet Volume 10.5 fL (9.1-12.4); NEUTROPHILS ABSOLUTE AUTO 9.57 K/mm3 (1.96-9.15); NEUTROPHILS PERCENT AUTO 88 % (41-73); Platelet Count 200 K/mm3 (150-400); RDW Coefficient Variation 12.1 % (11.7-14.2); RDW Standard Deviation 42.6 fL (35.1-46.3); Red Blood Cell Count 3.32 M/mm3 (3.80-5.20); White Blood Cell Count 10.93 K/mm3 (4.00-11.30)
[2021-01-29 04:57] LABS: Calcium, Blood 7.3 mg/dL (8.5-10.1); Creatinine, Blood 1.15 mg/dL (0.40-1.00)
[2021-01-29 04:58] LABS: Magnesium, Blood 0.9 mg/dL (1.6-2.4)
--- NOTE | 2021-01-29 05:30 | NUR ---
SPOKE WITH DR. WANG ABOUT CRTICIAL LAB VALUE OF 0.[address] WANG STATED TO WAIT FOR DR. SANDERS TO ROUND ON PATIENT LATER THIS MORNING. TEXTED DR. SANDERS AND AWAITING CALL BACK.
--- NOTE | 2021-01-29 07:50 | NUR ---
HOSPITALIST CONSULT ORDER RECIEVED RE: MG. CALLED DR PATEL & DISCUSSED SITUATION. AWAITING HIM TO COME TO ROOM. @ THIS TIME, PT DENIES CP, PALPTATIONS, LIGHTHEADEDNESS. NO TREMORS NOTED. HRR.
--- NOTE | 2021-01-29 19:57 | NUR ---
SHIFT SUMMARY PT RECIEVED IV & PO MEDS FOR LOW MG LEVEL; RECHECK WNL. N/V HAS RESOLVED. EATING, DRINKING, VOIDING, & HAVING LOOSE BM's. AMBULATING HAS IMPROVED THIS AFTERNOON, BUT STILL FEARFUL TO GO FARTHER THAN BATHROOM & BACK. PAIN WELL CONTROLLED W/ TYLENOL & TORADOL.
--- NOTE | 2021-01-30 04:38 | NUR ---
SHIFT SUMMARY: PT A&O X4. VS WNL THROUGHOUT SHIFT. PT POD#2 FOR A RT TKA. DRESSING C/D/I WITH POLAR PACK IN PLACE. PT C/O DISCOMFORT IN BEGINNING OF SHIFT. MEDICATED WITH ULTRAM PER EMAR AND TOLERATED WELL. PT ALSO MEDICATED WITH SCHEDULED TORADOL AND TYLENOL. PT DENIES PAIN THIS SHIFT. CURRENTLY RESTING ON LEFT SIDE WHICH SHE REPORTS TO BE MOST COMFORTABLE D/T RIGHT HIP PAIN. PT AMBULATED TO BATHROOM WITH 1 MINIMAL ASSIST. TOLERATED ACTIVITY WELL. GRANDDAUGHTER AT BEDSIDE.
[2021-01-30] MEDS ORDERED: PROM25 PO (11:49)
[2021-01-30] MEDS ORDERED: MAGNESIUM OXID500 MG PO (11:49)
[2021-01-30] MEDS ORDERED: ACET500 PO (11:49)
[2021-01-30] MEDS ORDERED: TRAM50 PO (11:50)
--- NOTE | 2021-01-30 12:45 | NUR ---
DISCHARGE CLEARED THERAPY & IS MUCH STRONGER. EATING, DRINKING, VOIDING, & HAVING BM'S. MG WNL. OK FOR DC W/ HOSPITALIST & DR SANDERS. SCRIPTS, ELISEO, & POLAR PACK SENT. ESCORTED OUT VIA W/C.
== END 2021-01-30 12:48 | disposition home or self-care (01) ==
LOC: SURS 10:20 → ORSCMMR 10:20 → SURS 13:57 → ORD 14:00 → ORSCMMR 14:00 → SURS 01-30 12:48
PROVIDERS: Orthopaedic Surgery
PROC: 8E0Y0CZ Robotic Assisted Procedure of Lower Extremity, Open Approach (ICD-10-PCS; principal; 2021-01-28 14:00)
PROC: 0SRC0JA Replacement of Right Knee Joint with Synthetic Substitute, Uncemented, Open Approach (ICD-10-PCS; principal; 2021-01-28 14:00)
DX: M17.11 Unilateral primary osteoarthritis, right knee (principal); I48.0 Paroxysmal atrial fibrillation; E78.5 Hyperlipidemia, unspecified; K21.9 Gastro-esophageal reflux disease without esophagitis; I11.0 Hypertensive heart disease with heart failure; I50.32 Chronic diastolic (congestive) heart failure; Z87.891 Personal history of nicotine dependence; Z79.01 Long term (current) use of anticoagulants; Z79.899 Other long term (current) drug therapy
CPT/HCPCS: 27447; S2900; 36415; 73560-RT; 80048; 82330; 83735; 85025; 97110; 97116; 97162; A9270; C1776; J0171; J0610; J0690; J0735; J1100; J1170; J1885; J2250; J2370; J2405; J2550; J2704; J2765; J2795; J3010; J3475; J7120

== ENCOUNTER 2021-02-01 10:22 | Emergency (ER) | payer OTHER ==
[~2021-02-01] VITALS: Ht 152.4 cm; Wt 83.9 kg
[~2021-02-01 10:22] MED LIST changes: +ACET500 PO; +MAGNESIUM OXID500 MG PO; +PROM25 PO; +TRAM50 PO
[2021-02-01 10:51] LABS: BASOPHILS ABSOLUTE AUTO 0.04 K/mm3 (0.00-0.23); BASOPHILS PERCENT AUTO 0 % (0-2); EOSINOPHILS ABSOLUTE AUTO 0.15 K/mm3 (0.00-0.68); EOSINOPHILS PERCENT AUTO 1 % (0-6); Hematocrit 29.9 % (33.0-51.0); Hemoglobin 9.9 g/dL (11.5-16.0); IMMATURE GRAN ABSOLUTE AUTO 0.07 K/mm3 (0.00-0.10); IMMATURE GRAN PERCENT AUTO 1 % (0-1); LYMPHOCYTES ABSOLUTE AUTO 2.75 K/mm3 (0.84-5.20); LYMPHOCYTES PERCENT AUTO 20 % (21-46); MONOCYTES ABSOLUTE AUTO 0.68 K/mm3 (0.16-1.47); MONOCYTES PERCENT AUTO 5 % (4-13); Mean Corpuscular HGB 32.8 pg (26.0-34.0); Mean Corpuscular HGB Conc 33.1 g/dL (31.5-36.5); Mean Corpuscular Volume 99 fL (80-100); Mean Platelet Volume 10.9 fL (9.1-12.4); NEUTROPHILS PERCENT AUTO 73 % (41-73); Platelet Count 242 K/mm3 (150-400); RDW Coefficient Variation 12.6 % (11.7-14.2); RDW Standard Deviation 45.4 fL (35.1-46.3); Red Blood Cell Count 3.02 M/mm3 (3.80-5.20); White Blood Cell Count 13.59 K/mm3 (4.00-11.30)
[2021-02-01 11:04] LABS: Alanine Aminotransfer (ALT/SGP 9 U/L (12-78); Albumin, Blood 2.4 g/dL (3.4-5.0); Albumin/Globulin Ratio 0.7 (0.8-1.8); Alk Phos 60 U/L (50-136); Anion Gap 13 mmol/L (6-16); Aspartate Aminotrans (AST/SGOT 13 U/L (12-37); Bilirubin, Total 0.9 mg/dL (0.1-1.0); Blood Urea Nitrogen 16 mg/dL (8-24); Bun/Creatinine Ratio 17.8 (12.0-20.0); CO2, Blood 18 mmol/L (21-32); Calcium, Blood 7.9 mg/dL (8.5-10.1); Chloride, Blood 103 mmol/L (98-108); Globulin, Blood 3.3 g/dL (2.2-4.0); Glomerular Filtration Rate >60 (60-); Glucose, Blood 127 mg/dL (70-99); Potassium, Blood 3.4 mmol/L (3.5-5.5); Sodium, Blood 134 mmol/L (136-145); Total Protein, Blood 5.7 g/dL (6.4-8.2); Troponin I <0.015 ng/mL (0.000-0.040)
[2021-02-01] MEDS ORDERED: PROM12.5S PR (12:58)
[2021-02-02] MEDS ORDERED: ONDA4ODT MM (20:47)
[2021-02-02] MEDS ORDERED: Percocet 5-3251 EACH PO (20:47)
[2021-02-02] MEDS ORDERED: LIDO700A20 TOP (20:47)
== END 2021-02-01 14:11 | disposition home or self-care (01) ==
LOC: ER 10:22
PROVIDERS: Emergency Medicine
DX: M54.31 Sciatica, right side (principal); I10 Essential (primary) hypertension; K21.9 Gastro-esophageal reflux disease without esophagitis; Z88.2 Allergy status to sulfonamides; Z88.1 Allergy status to other antibiotic agents; Z79.899 Other long term (current) drug therapy; Z87.891 Personal history of nicotine dependence
CPT/HCPCS: 36415; 74018; 80053; 84484; 85025; 93005; 93010; 96374; 96375; 96376; 99284-25; J1170; J2405; J3010; J7030

== ENCOUNTER 2021-02-02 18:30 | Emergency (ER) | payer OTHER ==
[~2021-02-02] VITALS: Ht 152.4 cm; Wt 81.7 kg
[~2021-02-02 18:30] MED LIST changes: +PROM12.5S PR
[2021-02-02] MEDS ORDERED: ONDA4ODT MM (20:47)
[2021-02-02] MEDS ORDERED: Percocet 5-3251 EACH PO (20:47)
[2021-02-02] MEDS ORDERED: LIDO700A20 TOP (20:47)
== END 2021-02-02 21:41 | disposition home or self-care (01) ==
LOC: ER 18:30
DX: M54.31 Sciatica, right side (principal)
CPT/HCPCS: 73502; 96374; 96376; 99283-25; A9270; J3010

== ENCOUNTER 2021-02-19 07:55 | Emergency (ER) | payer OTHER ==
[~2021-02-19] VITALS: Ht 165.1 cm; Wt 99.8 kg
[~2021-02-19 07:55] MED LIST changes: +LIDO700A20 TOP; +ONDA4ODT MM; +Percocet 5-3251 EACH PO
[2021-02-19] MEDS ORDERED: OXYCODONE-ACET1 EAC3 PO (08:06)
[2021-02-19 10:45] LABS: BASOPHILS ABSOLUTE AUTO 0.06 K/mm3 (0.00-0.23); BASOPHILS PERCENT AUTO 1 % (0-2); EOSINOPHILS ABSOLUTE AUTO 0.12 K/mm3 (0.00-0.68); EOSINOPHILS PERCENT AUTO 2 % (0-6); Hematocrit 31.9 % (33.0-51.0); Hemoglobin 10.5 g/dL (11.5-16.0); IMMATURE GRAN ABSOLUTE AUTO 0.03 K/mm3 (0.00-0.10); IMMATURE GRAN PERCENT AUTO 0 % (0-1); LYMPHOCYTES ABSOLUTE AUTO 1.76 K/mm3 (0.84-5.20); LYMPHOCYTES PERCENT AUTO 22 % (21-46); MONOCYTES ABSOLUTE AUTO 0.68 K/mm3 (0.16-1.47); MONOCYTES PERCENT AUTO 9 % (4-13); Mean Corpuscular HGB 33.2 pg (26.0-34.0); Mean Corpuscular HGB Conc 32.9 g/dL (31.5-36.5); Mean Corpuscular Volume 101 fL (80-100); Mean Platelet Volume 10.3 fL (9.1-12.4); NEUTROPHILS PERCENT AUTO 67 % (41-73); Platelet Count 337 K/mm3 (150-400); RDW Coefficient Variation 14.2 % (11.7-14.2); RDW Standard Deviation 51.8 fL (35.1-46.3); Red Blood Cell Count 3.16 M/mm3 (3.80-5.20); White Blood Cell Count 7.95 K/mm3 (4.00-11.30)
[2021-02-19 11:11] LABS: Bun/Creatinine Ratio 16.3 (12.0-20.0); Calcium, Blood 8.5 mg/dL (8.5-10.1); Creatinine, Blood 1.23 mg/dL (0.40-1.00); Potassium, Blood 4.2 mmol/L (3.5-5.5)
[2021-02-19] MEDS ORDERED: METAXALONE PO (11:40)
== END 2021-02-19 12:50 | disposition home or self-care (01) ==
LOC: ER 07:55
PROVIDERS: Physician Assistant
DX: M25.551 Pain in right hip (principal); I10 Essential (primary) hypertension; K21.9 Gastro-esophageal reflux disease without esophagitis; I48.91 Unspecified atrial fibrillation; Z88.2 Allergy status to sulfonamides; Z88.1 Allergy status to other antibiotic agents; Z79.899 Other long term (current) drug therapy; Z87.891 Personal history of nicotine dependence; Z79.01 Long term (current) use of anticoagulants
CPT/HCPCS: 73700; 80048; 85025; 93971; 96374; 96375; 99284-25; J2405; J3010; J7030

== ENCOUNTER 2024-01-04 13:19 | Emergency (ER) | payer OTHER ==
[~2024-01-04] VITALS: Ht 154.9 cm; Wt 59.0 kg
[2024-01-04 19:18] VITALS: BP 159/95
== END 2024-01-04 19:37 | disposition home or self-care (01) ==
LOC: ER 13:19
DX: R51.9 Headache, unspecified (principal); H53.8 Other visual disturbances; H53.149 Visual discomfort, unspecified; H93.299 Other abnormal auditory perceptions, unspecified ear; N39.0 Urinary tract infection, site not specified; K21.9 Gastro-esophageal reflux disease without esophagitis; H35.30 Unspecified macular degeneration; I12.9 Hypertensive chronic kidney disease with stage 1 through stage 4 chronic kidney disease, or unspecified chronic kidney disease; N18.9 Chronic kidney disease, unspecified; Z88.2 Allergy status to sulfonamides; Z88.1 Allergy status to other antibiotic agents; Z79.899 Other long term (current) drug therapy; Z87.891 Personal history of nicotine dependence

== ENCOUNTER → 2024-02-26 | Outpatient (CLI) | payer OTHER ==
[~2024-02-26] MED LIST changes: +ATORVASTATIN CA40 MG; +METAXALONE PO; +OXYCODONE-ACET1 EAC3 PO
[2024-02-26 13:47] LABS: Source, Urine Clean Catch
[2024-02-26 15:59] LABS: Appearance, Urine Cloudy (Clear); Blood, Urine 3+ (Neg); Glucose Qualitative, Urine Neg (Neg); Ketones, Urine Neg (Neg); Leukocyte Esterase, Urine 3+ (Neg); Nitrite, Urine Pos (Neg); Protein, Urine 2+ (Neg); Urobilinogen, Urine 2+ (Normal)
[2024-02-26 16:23] LABS: Bilirubin, Urine 2+ (Neg); Color, Urine Orange (P-Yellow)
[2024-02-26 16:24] LABS: Bacteria Many /hpf; Squamous Epithelial Cells Many /hpf (Few); White Blood Cells, Urine TNTC /hpf (0-5)
== END ==
LOC: LAB 13:45 → LAB SHORT 13:45
PROVIDERS: Nurse Practitioner Family
DX: R41.0 Disorientation, unspecified (principal)
CPT/HCPCS: 81001; 87077; 87086; 87186

== ENCOUNTER → 2024-05-25 | Outpatient (CLI) | payer OTHER ==
[2024-05-25 10:48] LABS: Source, Urine Clean Catch
[2024-05-25 12:42] LABS: Appearance, Urine Clear (Clear); Bilirubin, Urine Neg (Neg); Blood, Urine Neg (Neg); Glucose Qualitative, Urine Neg (Neg); Ketones, Urine Neg (Neg); Leukocyte Esterase, Urine Neg (Neg); Nitrite, Urine Neg (Neg); Protein, Urine Neg (Neg); Urobilinogen, Urine NORM (Normal)
[2024-05-25 12:54] LABS: Color, Urine Pale Yellow (P-Yellow)
== END | disposition home or self-care (01) ==
LOC: LAB SHORT 09:15 → LAB 09:15
PROVIDERS: Nurse Practitioner Family
DX: N39.0 Urinary tract infection, site not specified (principal); F05 Delirium due to known physiological condition
CPT/HCPCS: 81003

== ENCOUNTER → 2025-01-05 | Outpatient (CLI) | payer OTHER ==
[2025-01-05 17:02] LABS: Source, Urine Clean Catch
[2025-01-05 17:08] LABS: Appearance, Urine Clear (Clear); Bilirubin, Urine Neg (Neg); Blood, Urine Neg (Neg); Color, Urine Yellow (P-Yellow); Glucose Qualitative, Urine Neg (Neg); Ketones, Urine Neg (Neg); Leukocyte Esterase, Urine 2+ (Neg); Nitrite, Urine Neg (Neg); Protein, Urine 1+ (Neg); Urobilinogen, Urine NORM (Normal)
[2025-01-05 17:46] LABS: Bacteria Many /hpf; Squamous Epithelial Cells Mod /hpf (Few)
== END ==
LOC: LAB 09:25 → LAB SHORT 09:25
PROVIDERS: Nurse Practitioner Family
DX: N39.0 Urinary tract infection, site not specified (principal)
CPT/HCPCS: 81001; 87086

== ENCOUNTER → 2025-06-12 | Outpatient (CLI) | payer OTHER ==
[2025-06-12 18:08] LABS: Bilirubin, Urine Neg (Neg); Glucose Qualitative, Urine Neg (Neg); Ketones, Urine Neg (Neg); Leukocyte Esterase, Urine Neg (Neg); Protein, Urine Neg (Neg); Specific Gravity, Urine 1.010 (1.003-1.022); Urobilinogen, Urine NORM (Normal)
[2025-06-12 18:23] LABS: Color, Urine Pale Yellow (P-Yellow); Red Blood Cells, Urine 0-2 /hpf (0-2); White Blood Cells, Urine 0-2 /hpf (0-5)
== END ==
LOC: LAB 15:27 → LAB SHORT 15:27
PROVIDERS: Nurse Practitioner Family
DX: N39.0 Urinary tract infection, site not specified (principal)
CPT/HCPCS: 81001; 87086

== ENCOUNTER 2025-07-30 10:33 | Observation (INO) | payer OTHER ==
[~2025-07-30] VITALS: Ht 157.5 cm; Wt 82.5 kg
[2025-07-30 14:00] LABS: BASOPHILS ABSOLUTE AUTO 0.05 K/mm3 (0.00-0.23); BASOPHILS PERCENT AUTO 0 % (0-2); EOSINOPHILS ABSOLUTE AUTO 0.24 K/mm3 (0.00-0.68); EOSINOPHILS PERCENT AUTO 2 % (0-6); Hematocrit 36.7 % (33.0-51.0); Hemoglobin 12.2 g/dL (11.5-16.0); IMMATURE GRAN ABSOLUTE AUTO 0.03 K/mm3 (0.00-0.10); IMMATURE GRAN PERCENT AUTO 0 % (0-1); LYMPHOCYTES ABSOLUTE AUTO 3.15 K/mm3 (0.84-5.20); LYMPHOCYTES PERCENT AUTO 25 % (21-46); MONOCYTES ABSOLUTE AUTO 0.89 K/mm3 (0.16-1.47); MONOCYTES PERCENT AUTO 7 % (4-13); Mean Corpuscular HGB Conc 33.2 g/dL (31.5-36.5); Mean Corpuscular Volume 95 fL (80-100); NEUTROPHILS ABSOLUTE AUTO 8.14 K/mm3 (1.96-9.15); NEUTROPHILS PERCENT AUTO 65 % (41-73); NRBC ABSOLUTE 0.00 K/mm3 (0.00-0.02); NRBC Auto 0.0 /100 WBC (0.0-0.2); Platelet Count 242 K/mm3 (150-400); RDW Coefficient Variation 12.5 % (11.7-14.2); RDW Standard Deviation 43.6 fL (35.1-46.3)
[2025-07-30] MEDS ORDERED: Morphine Sulfate 4 MG/1 ML Injection IV ONE (14:15)
[2025-07-30 14:16] LABS: Anion Gap 9.0 mmol/L (3-11); Blood Urea Nitrogen 26.0 mg/dL (8-24); C-REACTIVE PROTEIN, EXT RANGE 1.13 mg/dL (0.000-0.300); CO2, Blood 20.0 mmol/L (21-32); Calcium, Blood 8.8 mg/dL (8.5-10.1); Chloride, Blood 109.0 mmol/L (98-108); Creatinine, Blood 1.55 mg/dL (0.40-1.00); Glucose, Blood 104.0 mg/dL (70-99); Potassium, Blood 4.4 mmol/L (3.5-5.5); Sodium, Blood 134.0 mmol/L (136-145)
[2025-07-30] MEDS ORDERED: FentaNYL Citrate 50 MCG/ML 2 ML Injection IV ONE (16:15)
[2025-07-30 16:32] LABS: Appearance, Synovial Fluid Bloody (Clear); Color, Synovial Fluid Red (None-P Yel); WBC Count, Synovial Fluid 7980 /mm3 (0-180)
[2025-07-30 16:33] LABS: BODY FLUID RBC 4.434 M/mm3 (0-0)
[2025-07-30 16:38] LABS: Eos, Synovial Fluid 1 % (0-2); Lymphs, Synovial Fluid 7 % (0-15); Monocytes/Macrophages, Synovia 7 % (0-65); Neutrophils, Synovial Fluid 85 % (0-24)
[2025-07-30] MEDS ORDERED: OxyCODONE 10/Acetamin 325 TABLET PO ONE (19:40)
[2025-07-30] MEDS ORDERED: XARELTO15 M1 PO (20:00)
[2025-07-30] MEDS ORDERED: JARDIANCE10 MG PO (20:00)
[2025-07-30] MEDS ORDERED: THERA-D2000 UNIT PO (20:01)
[2025-07-30] MEDS ORDERED: OLMESARTAN MEDO20 MG PO (20:01)
[2025-07-30] MEDS ORDERED: FentaNYL Citrate 50 MCG/ML 2 ML Injection IV PRN ×2 (20:05→21:55)
[2025-07-30] MEDS ORDERED: HydrALAZINE HCl 20 MG / ML 1ML Vial IV PRN (20:05)
[2025-07-30] MEDS ORDERED: Ondansetron HCl 2 MG / ML 2ML Vial IV PRN (20:05)
[2025-07-30] MEDS ORDERED: FLU VACC TS2025(65UP)/MF59C/PF 45 MCG/0.5 ML SYRINGE IM SCH (20:05)
[2025-07-30 20:58] VITALS: BP 161/73
[2025-07-30 22:28] LABS: Prothrombin Time Results 11.9 Sec (9.7-11.5)
[2025-07-30 22:35] LABS: Alanine Aminotransfer (ALT/SGP 10.0 U/L (12-78); Albumin, Blood 3.0 g/dL (3.4-5.0); Albumin/Globulin Ratio 0.9 (0.8-1.8); Aspartate Aminotrans (AST/SGOT 9.0 U/L (12-37); Bilirubin, Direct 0.2 mg/dL (0.0-0.3); Bilirubin, Indirect 0.4 mg/dL (0.1-0.7); Bilirubin, Total 0.6 mg/dL (0.1-1.0); Globulin, Blood 3.5 g/dL (2.2-4.0); Total Protein, Blood 6.5 g/dL (6.4-8.2)
[2025-07-31 04:25] LABS: BASOPHILS ABSOLUTE AUTO 0.04 K/mm3 (0.00-0.23); BASOPHILS PERCENT AUTO 0 % (0-2); EOSINOPHILS ABSOLUTE AUTO 0.07 K/mm3 (0.00-0.68); EOSINOPHILS PERCENT AUTO 1 % (0-6); Hematocrit 33.4 % (33.0-51.0); Hemoglobin 10.9 g/dL (11.5-16.0); IMMATURE GRAN ABSOLUTE AUTO 0.04 K/mm3 (0.00-0.10); IMMATURE GRAN PERCENT AUTO 0 % (0-1); LYMPHOCYTES ABSOLUTE AUTO 2.29 K/mm3 (0.84-5.20); LYMPHOCYTES PERCENT AUTO 20 % (21-46); MONOCYTES ABSOLUTE AUTO 0.73 K/mm3 (0.16-1.47); MONOCYTES PERCENT AUTO 6 % (4-13); Mean Corpuscular HGB Conc 32.6 g/dL (31.5-36.5); Mean Corpuscular Volume 95 fL (80-100); NEUTROPHILS ABSOLUTE AUTO 8.22 K/mm3 (1.96-9.15); NEUTROPHILS PERCENT AUTO 72 % (41-73); NRBC ABSOLUTE 0.00 K/mm3 (0.00-0.02); NRBC Auto 0.0 /100 WBC (0.0-0.2); Platelet Count 219 K/mm3 (150-400); RDW Coefficient Variation 12.4 % (11.7-14.2); RDW Standard Deviation 43.3 fL (35.1-46.3)
[2025-07-31 04:38] VITALS: BP 126/63
[2025-07-31 04:45] LABS: Alanine Aminotransfer (ALT/SGP 10.0 U/L (12-78); Albumin, Blood 2.8 g/dL (3.4-5.0); Albumin/Globulin Ratio 0.8 (0.8-1.8); Anion Gap 9.0 mmol/L (3-11); Aspartate Aminotrans (AST/SGOT 12.0 U/L (12-37); Bilirubin, Total 0.5 mg/dL (0.1-1.0); Blood Urea Nitrogen 23.0 mg/dL (8-24); CO2, Blood 22.0 mmol/L (21-32); Calcium, Blood 8.5 mg/dL (8.5-10.1); Chloride, Blood 109.0 mmol/L (98-108); Creatinine, Blood 1.41 mg/dL (0.40-1.00); Globulin, Blood 3.5 g/dL (2.2-4.0); Glucose, Blood 116.0 mg/dL (70-99); Potassium, Blood 4.6 mmol/L (3.5-5.5); Sodium, Blood 135.0 mmol/L (136-145); Total Protein, Blood 6.3 g/dL (6.4-8.2)
[2025-07-31 07:51] VITALS: BP 148/74
--- NOTE | 2025-07-31 07:51 | NUR ---
SHIFT SUMMARY PT ADMITTED FOR R KNEE HEMARTHROSIS. VSS. PT ORIENTED TO PERSON, PLACE, AND SITUATION. DAUGHTER AT BEDSIDE. PAIN MANAGED WELL PER EMAR. AFLUTTER @ 61 PER ASSEMBLY LINE DRIVER. CONTINUOUS PULSE OX IN PLACE, SPO2 96% ON RA. ORTHO CONSULT REQUESTED ORDERED. REPORT GIVEN TO ONCOMING RN. CALL LIGHT WITHIN REACH.
[2025-07-31 11:14] VITALS: BP 130/60
[2025-07-31 15:04] VITALS: BP 130/51
--- NOTE | 2025-07-31 18:54 | NUR ---
SUMMARY ASSUMED CARE OF PT @0700. AXO3-4. VSS. TELE AFLUTTER - CONTROLLED RATE. ON RA. PUREWICK IN PLACE. PT BEING REPOSITIONED. PT EVALUATED BY DR HUNTER - STATES TO PLACE ACEWRAP FROM FOOT TO THIGH - PLACED - PT STATES SENSATION INTACT POST APPLICATION. ICE BEING USED IN KNEE WELL PAIN MEDS PER EMAR TO HELP WITH PAIN. FAMILY IN AND OUT OF ROOM T/O SHIFT. TOLERATING REG DIET. DR AWARE OF OF OCCASIONAL BURNING WITH URINE - MONITORING FOR NEED TO COMPLETE UA. OTHERWISE, PT HAS BEEN RESTING IN BED T/O SHIFT. PLEASANT AND COOPERATIVE.
[2025-07-31 19:25] VITALS: BP 110/50
[2025-08-01] VITALS (7 sets, daily range): BP systolic 117–130; BP diastolic 53–80
--- NOTE | 2025-08-01 03:28 | NUR ---
NOC SUMMARY- PT PAIN MANAGED WELL. PT VOIDING VIA PUREWICK DEVICE. PT DAUGHTER STAYING THE NIGHT. PT REPOSITIONED TOLERATED. NO NEW ISSUES.
[2025-08-01 09:04] LABS: BASOPHILS ABSOLUTE AUTO 0.07 K/mm3 (0.00-0.23); BASOPHILS PERCENT AUTO 1 % (0-2); EOSINOPHILS ABSOLUTE AUTO 0.26 K/mm3 (0.00-0.68); EOSINOPHILS PERCENT AUTO 2 % (0-6); Hematocrit 31.1 % (33.0-51.0); Hemoglobin 10.2 g/dL (11.5-16.0); IMMATURE GRAN ABSOLUTE AUTO 0.03 K/mm3 (0.00-0.10); IMMATURE GRAN PERCENT AUTO 0 % (0-1); LYMPHOCYTES ABSOLUTE AUTO 2.93 K/mm3 (0.84-5.20); LYMPHOCYTES PERCENT AUTO 27 % (21-46); MONOCYTES ABSOLUTE AUTO 1.00 K/mm3 (0.16-1.47); MONOCYTES PERCENT AUTO 9 % (4-13); Mean Corpuscular HGB Conc 32.8 g/dL (31.5-36.5); Mean Corpuscular Volume 95 fL (80-100); NEUTROPHILS ABSOLUTE AUTO 6.72 K/mm3 (1.96-9.15); NEUTROPHILS PERCENT AUTO 61 % (41-73); NRBC ABSOLUTE 0.00 K/mm3 (0.00-0.02); NRBC Auto 0.0 /100 WBC (0.0-0.2); Platelet Count 245 K/mm3 (150-400); RDW Coefficient Variation 12.6 % (11.7-14.2); RDW Standard Deviation 43.6 fL (35.1-46.3)
[2025-08-01 09:19] LABS: Anion Gap 7.0 mmol/L (3-11); Blood Urea Nitrogen 23.0 mg/dL (8-24); CO2, Blood 23.0 mmol/L (21-32); Calcium, Blood 8.4 mg/dL (8.5-10.1); Chloride, Blood 106.0 mmol/L (98-108); Creatinine, Blood 1.53 mg/dL (0.40-1.00); Glucose, Blood 113.0 mg/dL (70-99); Potassium, Blood 4.2 mmol/L (3.5-5.5); Sodium, Blood 132.0 mmol/L (136-145)
[2025-08-01] MEDS ORDERED: FentaNYL Citrate 50 MCG/ML 2 ML Injection IV PRN (11:50)
--- NOTE | 2025-08-01 18:56 | NUR ---
Pt. is awake in bed and she welcomes my visit. Pt. is pleasant. Facilitated a life review and considered matters of luz maria and belief. Prayed with the Pt. Pt. verbalized gratitude for the spiritual care visit.
[2025-08-01] MEDS ORDERED: Polyethylene Glycol 3350 17 gm PO SCH (21:00)
[2025-08-02 00:18] VITALS: BP 125/68
--- NOTE | 2025-08-02 04:41 | NUR ---
SHIFT SUMMARY; PATIENT SLEPT IN LONG INTERVALS, GIVEN PRN PAIN MEDS AT HS. CRYOTHERAPY TO RIGHT KNEE. FAMILY SLEEPING OVER IN ROOM. TELE A FLUTTER, 60.
[2025-08-02 05:13] LABS: BASOPHILS ABSOLUTE AUTO 0.04 K/mm3 (0.00-0.23); BASOPHILS PERCENT AUTO 0 % (0-2); EOSINOPHILS ABSOLUTE AUTO 0.29 K/mm3 (0.00-0.68); EOSINOPHILS PERCENT AUTO 3 % (0-6); Hematocrit 32.4 % (33.0-51.0); Hemoglobin 10.6 g/dL (11.5-16.0); IMMATURE GRAN ABSOLUTE AUTO 0.03 K/mm3 (0.00-0.10); IMMATURE GRAN PERCENT AUTO 0 % (0-1); LYMPHOCYTES ABSOLUTE AUTO 3.07 K/mm3 (0.84-5.20); LYMPHOCYTES PERCENT AUTO 30 % (21-46); MONOCYTES ABSOLUTE AUTO 1.00 K/mm3 (0.16-1.47); MONOCYTES PERCENT AUTO 10 % (4-13); Mean Corpuscular HGB Conc 32.7 g/dL (31.5-36.5); Mean Corpuscular Volume 96 fL (80-100); NEUTROPHILS ABSOLUTE AUTO 5.72 K/mm3 (1.96-9.15); NEUTROPHILS PERCENT AUTO 56 % (41-73); NRBC ABSOLUTE 0.00 K/mm3 (0.00-0.02); NRBC Auto 0.0 /100 WBC (0.0-0.2); Platelet Count 256 K/mm3 (150-400); RDW Coefficient Variation 12.5 % (11.7-14.2); RDW Standard Deviation 43.8 fL (35.1-46.3)
[2025-08-02 05:16] VITALS: BP 90/68
[2025-08-02 05:39] LABS: Anion Gap 11.0 mmol/L (3-11); Blood Urea Nitrogen 22.0 mg/dL (8-24); CO2, Blood 21.0 mmol/L (21-32); Calcium, Blood 8.7 mg/dL (8.5-10.1); Chloride, Blood 105.0 mmol/L (98-108); Creatinine, Blood 1.39 mg/dL (0.40-1.00); Glucose, Blood 108.0 mg/dL (70-99); Potassium, Blood 4.6 mmol/L (3.5-5.5); Sodium, Blood 132.0 mmol/L (136-145)
[2025-08-02 07:45] VITALS: BP 108/59
--- NOTE | 2025-08-02 08:25 | NUR ---
HEART RATE PT BECAME NAUSIOUS. TELEMETRY CALLED. HR 30 FOR A SHORT TIME. JEFF NOTED ON MONITOR. HEART RATE RECOVERED BACK INTO THE 60'S. DR HEBERT CALLED.
[2025-08-02] MEDS ORDERED: Polyethylene Glycol 3350 17 gm PO ONE (11:55)
[2025-08-02 14:08] VITALS: BP 109/75
[2025-08-02 19:50] VITALS: BP 124/52
[2025-08-02 23:33] VITALS: BP 131/59
[2025-08-03] VITALS (7 sets, daily range): BP systolic 97–128; BP diastolic 50–74
--- NOTE | 2025-08-03 08:05 | NUR ---
SHIFT SUMMARY A&O X4 W/ INTERMITTENT CONFUSION THROUGHOUT SHIFT. PAIN MANAGED WELL PER EMAR. AFLUTTER @ 58 PER OIL INSPECTOR. PT AMBULATING TO BEDSIDE COMMODE W/ 1 PERSON ASSIST AND FWW. ICE PACK TO RLE. PLAN TO DISCHARGE TO SNF ON 08/04/25. PT RESTING IN BED, RESPIRATIONS EVEN AND UNLABORED. CALL LIGHT WITHIN REACH. REPORT GIVEN TO ONCOMING NURSE.
--- NOTE | 2025-08-03 18:11 | NUR ---
DR MURILLO IN TO SEE PT PLAN TO FOLLOW UP W/DR MURILLO OR DR SANDERS IN 10-14 DAYS IN OFFICE.
[2025-08-04 04:53] VITALS: BP 124/70
--- NOTE | 2025-08-04 06:34 | NUR ---
SHIFT SUMMARY A&O X4 WITH INTERMITTENT CONFUSION THIS SHIFT. PT COOPERATIVE WITH CARE. PAIN MANAGED WELL PER EMAR. AFLUTTER W/BBB @ 85 PER ADULT EDUCATION INSTRUCTOR. 1 PERSON ASSIST W/ FWW AMD GB TO BEDSIDE COMMODE. PT REPORTS OCCASSIONAL INCONTINENCE, ATTENDS IN PLACE. RLE EXTREMITY ELEVATED. PLAN TO DISCHARGE TO SNF ON 08/04/25. PT RESTING IN BED, RESPIRATIONS EVEN AND UNLABORED. CALL LIGHT WITHIN REACH. WILL GIVE REPORT TO ONCOMING NURSE.
[2025-08-04 07:17] VITALS: BP 113/66
[2025-08-04] MEDS ORDERED: Metoprolol Tartrate 1 MG/ML 5 ML VIAL IV ONE ×2 (08:50→10:00)
[2025-08-04 09:50] LABS: Anion Gap 12.0 mmol/L (3-11); Blood Urea Nitrogen 24.0 mg/dL (8-24); CO2, Blood 20.0 mmol/L (21-32); Calcium, Blood 8.5 mg/dL (8.5-10.1); Chloride, Blood 101.0 mmol/L (98-108); Creatinine, Blood 1.28 mg/dL (0.40-1.00); Glucose, Blood 149.0 mg/dL (70-99); Magnesium, Blood 1.9 mg/dL (1.6-2.4); Potassium, Blood 5.1 mmol/L (3.5-5.5); Sodium, Blood 128.0 mmol/L (136-145)
[2025-08-04 11:02] VITALS: BP 122/69
--- NOTE | 2025-08-04 13:46 | NUR ---
PATIENT RESTING IN RECLINER AT THIS TIME. PATIENTS HR IS IN THE 60'S PER CONTIN. MONITORING.
[2025-08-04 15:17] VITALS: BP 109/51
--- NOTE | 2025-08-04 17:57 | NUR ---
PATIENT UP TO CHAIR FOR MEALS AND BED SIDE COMMODE. PATIENT WILL GO TO REHAB IN THE AM. PATIENT USES CALL LIGHT NEEDED AND HAS NO CONCERNS.
[2025-08-04 19:31] VITALS: BP 120/55
[2025-08-05 00:09] VITALS: BP 127/61
--- NOTE | 2025-08-05 05:07 | NUR ---
COURTESY DRIVER SUMMARY PT PLEASANT AND HAS DONE WELL THROUGH THE NIGHT. MEDICATED FOR R KNEE PAIN ONCE WITH TRAMADOL WHICH PT REPORTS WORKS WELL. IV TO R ARM INFILTRATED SO NEW IV STARTED DUE TO PT BEING ON TELEMETRY. PER RN CASE MANAGER, PT HAS BEEN AFLUTTER IN THE 70-80'S THROUGH THE NIGHT. PT REFUSED SCHEDULED BOWEL MEDS AT BEDTIME DUE TO HAVING 3 BM'S DURING THE DAY. VSS, WCTM.
[2025-08-05 05:10] VITALS: BP 144/61
[2025-08-05 07:25] VITALS: BP 141/64
--- NOTE | 2025-08-05 08:50 | NUR ---
UPDATE PT STATES FEELING CHEST PAIN. STATES CONSTANT & "LIKE IT'S POKING". MD LAST NOTIFIED - EKG COMPLETED. VSS. STATES PAIN WAS RELIEVED FOLLOWING EKG. NO NEW ORDERS AT THIS TIME.
--- NOTE | 2025-08-05 09:46 | NUR ---
UPDATE NOTIFIED BY DATA MANAGEMENT ASSOCIATE CHARLES OF ST CHANGES & TACHYCARDIA IN 130'S FOLLOWING x1 EPISODE OF NAUSEA/VOMITING. MD LAST NOTIFIED - EKG COMPLETED & IN CHART. TACHYCARDIA IMPROVING TO 100'S. VSS. NO NEW ORDERS AT THIS TIME. MD LAST TO SEE PT.
[2025-08-05 11:51] VITALS: BP 120/51
[2025-08-05 14:29] VITALS: BP 125/64
[2025-08-05] MEDS ORDERED: NS 1,000 ML IV SCH (15:35)
--- NOTE | 2025-08-05 18:20 | NUR ---
SHIFT SUMMARY NO ACUTE CHANGES THIS SHIFT. A&O x3-4, FORGETFUL AT TIMES - REORIENTS EASILY. TOLERATING FOOD & FLUIDS WELL. CONTINOUS PULSE OX IN PLACE w/SATS >93%. MINIMAL PAIN TODAY w/MOVEMENT CONTROLLED WELL PER EMAR. WORKED w/THERAPY - UP TO CHAIR. STAND & PIVT TO BEDSIDE COMMODE FOR VOID. TELE EVENTS THIS AM - SEE PREVIOUS NOTES, NO NEW EVENTS FOLLOWING. PLAN TO DC TO SNF TOMORROW.
[2025-08-05 19:55] VITALS: BP 144/60
[2025-08-06 00:22] VITALS: BP 140/65
[2025-08-06 05:09] VITALS: BP 124/60
[2025-08-06 05:42] LABS: BASOPHILS ABSOLUTE AUTO 0.04 K/mm3 (0.00-0.23); BASOPHILS PERCENT AUTO 0 % (0-2); EOSINOPHILS ABSOLUTE AUTO 0.30 K/mm3 (0.00-0.68); EOSINOPHILS PERCENT AUTO 3 % (0-6); Hematocrit 32.1 % (33.0-51.0); Hemoglobin 10.7 g/dL (11.5-16.0); IMMATURE GRAN ABSOLUTE AUTO 0.04 K/mm3 (0.00-0.10); IMMATURE GRAN PERCENT AUTO 0 % (0-1); LYMPHOCYTES ABSOLUTE AUTO 2.77 K/mm3 (0.84-5.20); LYMPHOCYTES PERCENT AUTO 27 % (21-46); MONOCYTES ABSOLUTE AUTO 1.01 K/mm3 (0.16-1.47); MONOCYTES PERCENT AUTO 10 % (4-13); Mean Corpuscular HGB Conc 33.3 g/dL (31.5-36.5); Mean Corpuscular Volume 95 fL (80-100); NEUTROPHILS ABSOLUTE AUTO 5.99 K/mm3 (1.96-9.15); NEUTROPHILS PERCENT AUTO 59 % (41-73); NRBC ABSOLUTE 0.00 K/mm3 (0.00-0.02); NRBC Auto 0.0 /100 WBC (0.0-0.2); Platelet Count 346 K/mm3 (150-400); RDW Coefficient Variation 12.2 % (11.7-14.2); RDW Standard Deviation 42.3 fL (35.1-46.3)
[2025-08-06 06:13] LABS: Anion Gap 11.0 mmol/L (3-11); Blood Urea Nitrogen 23.0 mg/dL (8-24); CO2, Blood 21.0 mmol/L (21-32); Calcium, Blood 9.2 mg/dL (8.5-10.1); Chloride, Blood 100.0 mmol/L (98-108); Creatinine, Blood 1.24 mg/dL (0.40-1.00); Glucose, Blood 114.0 mg/dL (70-99); Potassium, Blood 4.6 mmol/L (3.5-5.5); Sodium, Blood 127.0 mmol/L (136-145)
[2025-08-06 07:22] VITALS: BP 136/65
--- NOTE | 2025-08-06 07:30 | NUR ---
SHIFT SUMMARY NO ACUTE CHANGES THIS SHIFT. A&O X4 WITH INTERMITTENT CONFUSION. PT PLEASANT AND COOPERATIVE WITH CARE. PAIN MANAGED WELL PER EMAR. AFLUTTER W/BBB @ 68 PER REGULATORY AFFAIRS MANAGER. CONTINUOUS PULSE OX IN PLACE SPO2 >93% ON RA. PLAN TO DISCHARGE TO SNF. PT RESTING IN BED, RESPIRATIONS EVEN AND UNLABORED. CALL LIGHT WITHIN REACH.
[2025-08-06] MEDS ORDERED: LOSA50 PO (08:23)
[2025-08-06] MEDS ORDERED: Acetaminophen650 M1 PO (08:24)
[2025-08-06] MEDS ORDERED: TRAM50 PO (08:24)
[2025-08-06 14:48] VITALS: BP 141/66
--- NOTE | 2025-08-06 16:44 | NUR ---
DISCHARGE SUMMARY ADMITTED FOR R KNEE HEMOARTHROSIS. R KNEE w/ILYA WRAP - C/D/I. TELE DC'D - ONE EPISODE OF TACHYCARDIA THIS AM w/MOVEMENT THAT RESOLVED w/REST. 1PA TO BEDSIDE COMMODE FOR VOID. PAIN CONTROLLED WELL PER EMAR. TOLERATING FOOD & FLUIDS WELL. REPORT CALLED TO RN AT [facility]. DC INSTRUCTIONS SENT. TRANSPORT FOR PICKUP.
== END 2025-08-06 15:40 ==
LOC: ER 10:33 → SURS 10:34 → ERHOLD 10:34 → SURS 20:45
PROVIDERS: Emergency Medicine; Internal Medicine; Student in an Organized Health Care Education/Training Program; ADMIT Internal Medicine
DX: M25.061 Hemarthrosis, right knee (principal); I48.20 Chronic atrial fibrillation, unspecified; I10 Essential (primary) hypertension; E78.5 Hyperlipidemia, unspecified; M85.88 Other specified disorders of bone density and structure, other site; M71.21 Synovial cyst of popliteal space [Baker], right knee; Z87.891 Personal history of nicotine dependence; Z79.01 Long term (current) use of anticoagulants; Z79.899 Other long term (current) drug therapy; Z88.2 Allergy status to sulfonamides; Z96.651 Presence of right artificial knee joint; Z98.890 Other specified postprocedural states
CPT/HCPCS: 36415; 73562-RT; 73701; 80048; 80053; 80076; 82947; 83735; 83880; 85025; 85610; 85651; 86140; 87070; 87075; 87205; 89051; 89060; 93005; 93010; 93971; 96374; 97110; 97161; 97165; 97530; 97535; 99285-25; A6590; A9270; G0378; J2270; J2405; J3010; Q9967